=== PATIENT | male | born 1990 | race Caucasian/White ===

== ENCOUNTER 2016-11-07 10:29 | Emergency (ER) | payer OTHER ==
--- NOTE | 2016-11-07 12:16 | ED GENERAL ADULT ---
History of Present Illness General Chief Complaint: ETOH/Drug Related Complaint Stated Complaint: PT TOOK 4-6 XANAX Source: patient, FATHER Exam Limitations: no limitations Vital Signs & Intake/Output Vital Signs & Intake/Output Vital Signs Date Time Temp Pulse Resp B/P B/P Pulse O2 O2 Flow FiO2 Mean Ox Delivery Rate 11/07 1150 Room Air 11/07 1036 96.9 90 22 118/72 94 Room Air Allergies Coded Allergies: tree nut (SOB 11/07/16) Triage Note: PER PT UNABLE TO SLEEP TOOK #5 0.5 MG XANAX, THEN THOUGHT I WAS OUT OF IT, EMS CALLED BUT SAID I HAD TO COME GET CHECKED OUT. DENIES IS/HI GESTURE ONLY TRYING TO SLEEP. 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 yes HPI: Patient presents for evaluation of an excessive dose of Xanax taken about 7:00 this morning. Patient states he was having trouble sleeping and took the medication in order to get some rest. He became tired and looked "out of it" prompting his sister to call 911. The patient denies depression or suicidal ideation/attempt. He has no complaint at this time. Past History Travel History Traveled to [place] past 21 day No Medical History Any Pertinent Medical History? see below for history Neurological: NONE EENT: NONE Cardiovascular: NONE Respiratory: NONE Gastrointestinal: NONE Hepatic: NONE Renal: NONE Musculoskeletal: NONE Psychiatric: NONE Endocrine: NONE Other Medical Hx: Methadone maintenance program Surgical History Surgical History: non-contributory Psychosocial History What is your primary language Estonian Tobacco Use: Current Daily Use Daily Tobacco Use Amount/Type: => 5 Cigarettes daily Illicit Drug Use: denies illicit drug use Family History Hx Contributory? No Review of Systems Review of Systems Constitutional: Reports: no symptoms. EENTM: Reports: no symptoms. Respiratory: Reports: no symptoms. Cardiovascular: Reports: no symptoms. GI: Reports: no symptoms. Genitourinary: Reports: no symptoms. Musculoskeletal: Reports: no symptoms. Skin: Reports: no symptoms. Neurological/Psychological: Reports: no symptoms. Hematologic/Endocrine: Reports: no symptoms. Immunologic/Allergic: Reports: no symptoms. All Other Systems: Reviewed and Negative Physical Exam Physical Exam General Appearance: SEE BELOW Comments: General: Alert, calm, cooperative, somewhat tired appearing Head: Normocephalic, atraumatic Eyes: Normal inspection, no nystagmus, EOMI Ears: Normal inspection Nose: Normal inspection Throat: Moist mucosa Neck: Supple, no goiter Heart: Regular rate and rhythm, no murmurs rubs or gallops Lungs: Clear to auscultation bilaterally with good air entry Abdomen: Soft nontender nondistended, normal bowel sounds Chest: Nontender Extremities: Normal range of motion grossly, no tremors present, no cyanosis clubbing or edema of the upper extremities Neurologic: cranial nerves II through XII grossly intact, speech clear, gait normal Psychiatric: No apparent delusions or hallucinations, no pressured speech or thought blocking Core Measures ACS in differential dx? No CVA/TIA Diagnosis: No Severe Sepsis Present: No Septic Shock Present: No Progress Differential Diagnoses I considered the following diagnoses in my evaluation of the patient: Suicide attempt, medication overdose/side effect Plan of Care: Continue current medications Initial ED EKG: none Departure Departure Disposition: HOME OR SELF CARE Condition: Stable Clinical Impression Primary Impression: Medication side effect Qualifiers: Encounter type: initial encounter Qualified Code: T88.7XXA - Unspecified adverse effect of drug or medicament, initial encounter Referrals: OUTPATIENT PSYCHIATRY UNKNOWN (PCP/Family) Additional Instructions: Take your Xanax only as prescribed. Return if any concerns or sudden worsening. Departure Forms: COUNSELING SERVICES REFERENCE Customer Survey General Discharge Information Critical Care Note Critical Care Note Critical Care Time: non-applicable
[2016-11-07 12:21] VITALS: BP 119/63
== END 2016-11-07 12:22 ==
LOC: ERH 10:29
DX: T42.75XA Adverse effect of unspecified antiepileptic and sedative-hypnotic drugs, initial encounter (principal)